=== PATIENT | male | born 1970 | race American Indian/Alaskan Native ===

== ENCOUNTER 2020-02-06 06:58 | Inpatient (IN) | payer OTHER ==
--- NOTE | 2020-02-06 07:07 | Emergency Department Report ---
ED Shortness of Breath HPI - General Stated Complaint: PRETTY Time Seen by Provider: 02/06/20 07:02 Source: patient Mode of arrival: Stretcher Limitations: No Limitations - History of Present Illness Initial Comments: Mr. Arellano is a 49-year-old male with history of ESRD on peritoneal dialysis, insulin-dependent diabetes who has sudden onset of shortness of breath 2-1/2 hours prior to arrival. He arrived via EMS. EMS detected 84% oxygenation on room air. 99% after nonrebreather. Blood glucose also 41. Denies fever. Denies cough. No travel. Known exposure to Kovic 19 infection. However he has not socially isolated. He has visited retail places such as grocery stores. 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 Normal fluid intake. He performs 4 exchanges for peritoneal dialysis. Stacker Dr. Merry Pfeiffer MD Complaint: shortness of breath -: Sudden, hour(s) (2.5) Severity: severe Consistency: constant Improves With: oxygen Worsens With: nothing Known History Of: diabetes, other (Chronic kidney disease) Associated Symptoms: denies other symptoms - Related Data Home Medications Medication Instructions Recorded Confirmed Last Taken Levemir VIAL 12 units SUB-Q BID 02/06/20 02/06/20 02/05/20 21:00 Losartan 100 mg PO DAILY 02/06/20 02/06/20 02/05/20 09:00 NIFEdipine [Nifedipine ER] 60 mg PO HS 02/06/20 02/06/20 02/05/20 21:00 NovoLOG 100 UNITS/ML VIAL 4 units SUB-Q TID 02/06/20 02/06/20 Unknown carvediloL [Coreg] 25 mg PO BID 02/06/20 02/06/20 02/05/20 21:00 cloNIDine 0.2 mg PO DAILY 02/06/20 02/06/20 02/05/20 09:00 Allergies Allergy/AdvReac Type Severity Reaction Status Date / Time No Known Allergies Allergy Unverified 02/06/20 07:32 ED Review of Systems ROS: Stated complaint: PRETTY Other details as noted in HPI Comment: All other systems reviewed and negative Constitutional: malaise Respiratory: shortness of breath Cardiovascular: denies: chest pain Gastrointestinal: denies: abdominal pain, nausea, vomiting Neurological: denies: headache ED Past Medical Hx - Past Medical History Previous Medical History?: Yes Hx Diabetes: Yes Hx Renal Disease: Yes - Medications Home Medications: Home Medications Medication Instructions Recorded Confirmed Last Taken Type Levemir VIAL 12 units SUB-Q BID 02/06/20 02/06/20 02/05/20 21:00 History Losartan 100 mg PO DAILY 02/06/20 02/06/20 02/05/20 09:00 History NIFEdipine [Nifedipine ER] 60 mg PO HS 02/06/20 02/06/20 02/05/20 21:00 History NovoLOG 100 UNITS/ML VIAL 4 units SUB-Q TID 02/06/20 02/06/20 Unknown History carvediloL [Coreg] 25 mg PO BID 02/06/20 02/06/20 02/05/20 21:00 History cloNIDine 0.2 mg PO DAILY 02/06/20 02/06/20 02/05/20 09:00 History ED Physical Exam - General General appearance: alert, in distress (Obvious work of breathing patient a ppears clammy) - Head Head exam: Present: atraumatic, normocephalic - Eye Eye exam: Present: normal appearance - ENT ENT exam: Present: normal orophraynx, mucous membranes moist - Neck Neck exam: Present: normal inspection, full ROM - Respiratory Respiratory exam: Present: respiratory distress, rales, rhonchi, accessory muscle use, decreased breath sounds, other (loud rales ronchi lower midback). Absent: wheezes - Cardiovascular Cardiovascular Exam: Present: regular rate, normal rhythm, normal heart sounds. Absent: systolic murmur, diastolic murmur, rubs, gallop - GI/Abdominal GI/Abdominal exam: Present: soft, normal bowel sounds, other (Left lower quadrant: Peritoneal dialysis catheter in place without redness or drainage). Absent: distended, tenderness, guarding, rebound - Rectal Rectal exam: Present: deferred - Extremities Exam Extremities exam: Present: normal inspection - Neurological Exam Neurological exam: Present: alert, oriented X3 - Psychiatric Psychiatric exam: Present: normal affect, normal mood - Skin Skin exam: Present: warm, dry, intact, normal color. Absent: rash ED Course Vital Signs 02/06/20 02/06/20 02/06/20 07:27 08:19 08:48 Pulse Rate 75 88 78 Respiratory 22 15 Rate Blood Pressure 189/102 189/102 Blood Pressure 184/99 [Right] O2 Sat by Pulse 92 92 Oximetry 02/06/20 02/06/20 08:49 09:21 Pulse Rate 78 78 Respiratory Rate Blood Pressure 189/102 203/120 Blood Pressure [Right] O2 Sat by Pulse Oximetry ED Medical Decision Making - Lab Data Result diagrams: 02/06/20 07:42 02/06/20 07:42 - Radiology Data Radiology results: report reviewed Chest radiograph reveal bilateral perihilar vascular prominence and parenchymal opacification likely representing interstitial edema - Medical Decision Making Mr. Arellano presents with acute respiratory failure hypoxia presumably due to pulmonary edema, volume overload in the setting of end-stage renal disease on peritoneal dialysis. Without fever cough I do not suspect infectious process however considering our current international pandemic of COVID 19 infection, I have submitted pain URI survey to the [facility]. Patient had been placed on respiratory and droplet precautions upon arrival. However after reviewing x-ray and clinical picture, patient presents without fever cough I feel his symptoms are due to volume overload pulmonary edema due to end-stage renal disease. Mr. Arellano does not make urine. Home medications include nifedipine carvedilol losartan clonidine I discussed case with inspector semiconductor wafer Dr. Caballero who will initiate continuous peritoneal dialysis. Will consider temporary hemodialysis if required. Admitted to the hospital service in fair condition. Critical Care Time: Yes Critical care time in (mins) excluding proc time.: 40 Critical care attestation.: If time is entered above; I have spent that time in minutes in the direct care of this critically ill patient, excluding procedure time. 40 minutes of critical care time excluding procedures were used in the care of the patient. I reviewed electronic record. I discussed treatment plan with the nursing team members at the bedside. I came immediately to the bedside. Patient required multiple interventions and reassessments. Patient required multiple consultations with specialists. ED Disposition Clinical Impression: Acute respiratory failure with hypoxia, Volume overload, Pulmonary edema Disposition: OP ADMIT IP TO THIS HOSP Is pt being admited?: Yes Does the pt Need Aspirin: No Condition: Fair
[2020-02-06] MEDS ORDERED: DEXTROSE 50% IN WATER (25GM) 50 ML SYRINGE IV ONE (07:08)
[2020-02-06] MEDS ORDERED: DEXTROSE 50% IN WATER (25GM) 50 ML VIAL IV ONE (07:33)
[2020-02-06] MEDS ORDERED: NITROGLYCERIN 2% OINT 1 GM TP ONE (07:58)
[2020-02-06] MEDS ORDERED: LOSARTAN 25 MG TAB PO ONE (07:58)
[2020-02-06] MEDS ORDERED: cloNIDine 0.2 MG TAB PO ONE (07:58)
[2020-02-06] MEDS ORDERED: FUROSEMIDE 100 MG/10 ML INJ IV ONE (08:01)
[2020-02-06 08:29] LABS: Basophils # (Auto) 0.1 K/mm3 (0.0-0.1); Basophils % (Auto) 1.6 % (0.0-1.8); Eosinophils # (Auto) 0.4 K/mm3 (0.0-0.4); Hematocrit 31.4 % (35.5-45.6); Lymphocytes # (Auto) 1.1 K/mm3 (1.2-5.4); Lymphocytes % (Auto) 18.3 % (13.4-35.0); Mean Corpuscular HGB Conc 32 % (32-34); Mean Corpuscular Volume 74 fl (84-94); Monocytes # (Auto) 0.3 K/mm3 (0.0-0.8); Monocytes % (Auto) 5.4 % (0.0-7.3); Platelet Count 366 K/mm3 (140-440); Red Blood Count 4.27 M/mm3 (3.65-5.03)
--- NOTE | 2020-02-06 08:31 | XRay Report ---
CHEST 1 VIEW 02/06/2020 7:22 AM INDICATION / CLINICAL INFORMATION: Dyspnea. COMPARISON: None available. FINDINGS: SUPPORT DEVICES: None. HEART / MEDIASTINUM: Mildly enlarged. LUNGS / PLEURA: There is bilateral perihilar vascular prominence and parenchymal opacification likely representing interstitial edema. No pneumothorax. ADDITIONAL FINDINGS: No significant additional findings. IMPRESSION: 1. Findings that may represent CHF, including mild cardiomegaly and bilateral perihilar vascular prom inence and parenchymal opacities. Signer Name: Jayy Devine MD Signed: 02/06/2020 8:26 AM Workstation Name: [id number]
[2020-02-06 08:40] LABS: Red Cell Distribution Width 21.3 % (13.2-15.2)
[2020-02-06 08:46] LABS: Albumin 3.5 g/dL (3.9-5)
[2020-02-06 08:58] LABS: Chol/HDL Ratio 4.02 %
[2020-02-06] MEDS ORDERED: DEXTROSE 50% IN WATER (25GM) 50 ML SYRINGE IV PRN (09:38)
[2020-02-06] MEDS ORDERED: ALBUTEROL 2.5 MG/3 ML NEBU IH PRN (09:39)
--- NOTE | 2020-02-06 09:44 | History and Physical Report ---
History of Present Illness Date of examination: 02/06/20 Date of admission: 02/06/2020 Chief complaint: Shortness of breath History of present illness: Patient is a 49-year-old male with past medical history of end-stage renal disease on peritoneal dialysis, diabetic mellitus insulin-dependent and hypertension who presented to the ED with complaints of shortness of breath which he states was sudden in onset. He did call EMS on arrival of EMS was noted to have an oxygen saturation of 84% on room air. It was also noted to have congestion bilateral. When oxygen was placed on him his oxygen improved to 99% on a nonrebreather and is now 97% on 2 L nasal cannula. He denies any nausea vomiting or diarrhea he denies any cold or cough. He reports that he does have seasonal allergies and is not unusual for him to get acutely short of breath like this. He denies any prior exposure to COVID 19 persons. He normally performs 4 exchanges for peritoneal dialysis. He reports that he also continues to work abnormalities. Has been associated with the ongoing viral infection. Past History Past Medical History: diabetes, ESRD, hypertension, hyperlipidemia Past Surgical History: Other (PD catheter) Social history: no significant social history, full code Family history: no significant family history Medications and Allergies Allergies Allergy/AdvReac Type Severity Reaction Status Date / Time No Known Allergies Allergy Unverified 02/06/20 07:32 Home Medications Medication Instructions Recorded Confirmed Last Taken Type Levemir VIAL 12 units SUB-Q BID 02/06/20 02/06/20 02/05/20 21:00 History Losartan 100 mg PO DAILY 02/06/20 02/06/20 02/05/20 09:00 History NIFEdipine [Nifedipine ER] 60 mg PO HS 02/06/20 02/06/20 02/05/20 21:00 History NovoLOG 100 UNITS/ML VIAL 4 units SUB-Q TID 02/06/20 02/06/20 Unknown History carvediloL [Coreg] 25 mg PO BID 02/06/20 02/06/20 02/05/20 21:00 History cloNIDine 0.2 mg PO DAILY 02/06/20 02/06/20 02/05/20 09:00 History Active Meds: Active Medications Albuterol (Proventil) 2.5 mg IH Q3HRT PRN PRN Reason: Shortness Of Breath Carvedilol (Coreg) 25 mg PO BID RAJ Dextrose (D50w (25gm) Syringe) 50 ml IV Q30MIN PRN; Protocol PRN Reason: Hypoglycemia Insulin Human Lispro (Humalog) 0 unit SUB-Q ACHS RAJ; Protocol Miscellaneous Medication (Clonidine) 0.2 mg PO DAILY RAJ Miscellaneous Medication (Levemir Vial) 12 units SUB-Q BID RAJ Miscellaneous Medication (Losartan) 100 mg PO DAILY RAJ Miscellaneous Medication (Novolog 100 Units/Ml Vial) 4 units SUB-Q TID RAJ Nifedipine (Procardia Xl) 60 mg PO HS RAJ Sodium Chloride (Sodium Chloride Flush Syringe 10 Ml) 10 ml IV BID RAJ Sodium Chloride (Sodium Chloride Flush Syringe 10 Ml) 10 ml IV PRN PRN PRN Reason: LINE FLUSH Review of Systems Constitutional: no weight loss, no weight gain, no fever, no chills, no sweats, no fatigue, no weakness, no malaise Cardiovascular: shortness of breath, dyspnea on exertion, no chest pain, no orthopnea, no palpitations, no rapid/irregular heart beat, no edema, no syncope, no lightheadedness, no paroxysmal nocturnal dyspnea, no claudication, no phlebitis, no high blood pressure Respiratory: shortness of breath, dyspnea on exertion, no cough, no cough with sputum, no excessive sputum Gastrointestinal: no abdominal pain, no nausea, no diarrhea, no change in bowel habits, no hematemesis Musculoskeletal: no neck pain, no arm numbness/tingling, no morning stiffness, no muscle weakness, no myalgias, no frequent falls, no fractures, no loss of height Integumentary: no rash, no redness, no jaundice, no darkening of skin, no depigmentation Neurological: no paralysis, no parathesias, no syncope, no confusion, no memory loss, no loss of vision Psychiatric: no change in sleep habits, no change in appetite, no anhedonia, no difficulties concentrating Exam - Physical Exam Narrative exam: VITAL SIGNS: Reviewed. GENERAL: The patient appears normally developed, otherwise with mild to moderate respiratory distress vital signs as documented. HEAD: No signs of head trauma. EYES: Pupils are equal. Extraocular motions intact. EARS: Hearing grossly intact. MOUTH: Oropharynx is normal. NECK: No adenopathy, no JVD. CHEST: Chest with crackles breath sounds bilaterally. No wheezes. CARDIAC: Regular rate and rhythm. S1 and S2, without murmurs, gallops, or rubs. VASCULAR: No Edema. Peripheral pulses normal and equal in all extremities. ABDOMEN: Soft, non tender and non distended. No rebound or guarding, and no masses palpated. Bowel Sounds normal. MUSCULOSKELETAL: Good range of motion of all major joints. Extremities without clubbing, cyanosis or edema. NEUROLOGIC EXAM: Alert and oriented x 3 No focal sensory or strength deficits. Speech normal. Follows commands. PSYCHIATRIC: Mood normal. SKIN: detial exam as documented in skin assessment - Constitutional Vitals: Temp Pulse Resp BP Pulse Ox 78 15 203/120 92 02/06/20 09:21 02/06/20 08:19 02/06/20 09:21 02/06/20 08:19 Results - Labs CBC & Chem 7: 02/06/20 07:42 02/06/20 07:42 Labs: Laboratory Last Values WBC 6.0 K/mm3 (4.5-11.0) 02/06/20 07:42 RBC 4.27 M/mm3 (3.65-5.03) 02/06/20 07:42 Hgb 10.0 gm/dl (11.8-15.2) L 02/06/20 07:42 Hct 31.4 % (35.5-45.6) L 02/06/20 07:42 MCV 74 fl (84-94) L 02/06/20 07:42 MCH 24 pg (28-32) L 02/06/20 07:42 MCHC 32 % (32-34) 02/06/20 07:42 RDW 21.3 % (13.2-15.2) H 02/06/20 07:42 Plt Count 366 K/mm3 (140-440) 02/06/20 07:42 Lymph % (Auto) 18.3 % (13.4-35.0) 02/06/20 07:42 [place] % (Auto) 5.4 % (0.0-7.3) 02/06/20 07:42 Eos % (Auto) 6.0 % (0.0-4.3) H 02/06/20 07:42 Baso % (Auto) 1.6 % (0.0-1.8) 02/06/20 07:42 Lymph # 1.1 K/mm3 (1.2-5.4) L 02/06/20 07:42 [place] # 0.3 K/mm3 (0.0-0.8) 02/06/20 07:42 Eos # 0.4 K/mm3 (0.0-0.4) 02/06/20 07:42 Baso # 0.1 K/mm3 (0.0-0.1) 02/06/20 07:42 Seg Neutrophils % 68.7 % (40.0-70.0) 02/06/20 07:42 Seg Neutrophils # 4.1 K/mm3 (1.8-7.7) 02/06/20 07:42 Sodium 135 mmol/L (137-145) L 02/06/20 07:42 Potassium 4.5 mmol/L (3.6-5.0) 02/06/20 07:42 Chloride 93.2 mmol/L (98-107) L 02/06/20 07:42 Carbon Dioxide 20 mmol/L (22-30) L 02/06/20 07:42 Anion Gap 26 mmol/L 02/06/20 07:42 BUN 92 mg/dL (9-20) H 02/06/20 07:42 Creatinine 19.3 mg/dL (0.8-1.5) H 02/06/20 07:42 Estimated GFR 3 ml/min 02/06/20 07:42 BUN/Creatinine Ratio 5 % 02/06/20 07:42 Glucose 101 mg/dL (75-100) H 02/06/20 07:42 POC Glucose 40 (70-105) L 02/06/20 07:26 Calcium 8.0 mg/dL (8.4-10.2) L 02/06/20 07:42 Total Bilirubin 0.40 mg/dL (0.1-1.2) 02/06/20 07:42 AST 26 units/L (5-40) 02/06/20 07:42 ALT 17 units/L (7-56) 02/06/20 07:42 Alkaline Phosphatase 80 units/L (35-129) 02/06/20 07:42 Troponin T 0.219 ng/mL (0.00-0.029) H* 02/06/20 07:42 Total Protein 6.8 g/dL (6.3-8.2) 02/06/20 07:42 Albumin 3.5 g/dL (3.9-5) L 02/06/20 07:42 Albumin/Globulin Ratio 1.1 % 02/06/20 07:42 Triglycerides 162 mg/dL (2-149) H 02/06/20 07:42 Cholesterol 153 mg/dL (50-199) 02/06/20 07:42 LDL Cholesterol Direct 91 mg/dL (50-130) 02/06/20 07:42 HDL Cholesterol 38 mg/dL (40-59) L 02/06/20 07:42 Cholesterol/HDL Ratio 4.02 % 02/06/20 07:42 Microbiology: Microbiology 02/06/20 Unknown Peripheral/Venous Blood Culture - Preliminary Culture in Progress 02/06/20 Unknown Peripheral/Venous Blood Culture - Preliminary Culture in Progress - Imaging and Cardiology Chest x-ray: image reviewed (Bilateral pulmonary edema) Assessment and Plan Assessment and plan: Patient is a 49-year-old male with past medical history of end-stage renal disease on peritoneal dialysis, diabetic mellitus insulin-dependent and hypertension who presented to the ED with complaints of shortness of breath which he states was sudden in onset. He did call EMS on arrival of EMS was noted to have an oxygen saturation of 84% on room air. It was also noted to have congestion bilateral. When oxygen was placed on him his oxygen improved to 99% on a nonrebreather and is now 97% on 2 L nasal cannula. He denies any n ausea vomiting or diarrhea he denies any cold or cough. He reports that he does have seasonal allergies and is not unusual for him to get acutely short of breath like this. He denies any prior exposure to COVID 19 persons. He normally performs 4 exchanges for peritoneal dialysis. He reports that he also continues to work abnormalities. Has been associated with the ongoing viral infection. * Patient will be admitted to telemetry unit. Following discussion with NOREEN lee and sudden onset of patient's condition while I think is less likely that the patient is currently 19+ nevertheless with the ongoing clinical condition and the environment will go ahead with work-up that has been initiated in the ED. * We will also start patient on Claritin considering seasonal allergies. * Per ED physician nephrology is going to do continuous PD diuresis and will reevaluate the patient including chest x-ray in a.m. * We will add the additional COVID 19 work-up. * Plan has been discussed with the patient in detail DVT and GI prophylaxis will also be included. Acute on chronic respiratory failure with hypoxia End-stage renal disease on hemodialysis Volume overload Seasonal allergies Presumed COVID 19 rule out Diabetes mellitus Hypertension Type II ID Advance Directives: Yes Plan of care discussed with patient/family: Yes
[2020-02-06] MEDS ORDERED: LEVEMIR 12 UNIT SUB-Q SCH (10:00)
[2020-02-06] MEDS ORDERED: LOSARTAN 50 MG TAB PO SCH (10:00)
[2020-02-06] MEDS ORDERED: cloNIDine 0.2 MG TAB ONE (11:51)
[2020-02-06] MEDS ORDERED: LOSARTAN 50 MG TAB ONE (11:56)
[2020-02-06] MEDS ORDERED: carvediloL 25 MG TAB ONE (11:57)
[2020-02-06] MEDS: cloNIDine 0.2 MG TAB PO SCH (12:00)
[2020-02-06] MEDS: carvediloL 25 MG TAB PO SCH ×2 (12:00→21:54)
[2020-02-06] MEDS ORDERED: NOVOLOG SUB-Q SCH (14:00)
--- NOTE | 2020-02-06 15:04 | Consultation ---
History of Present Illness - Reason for Consult Consult date: 02/06/20 end stage renal disease Requesting physician: RADHA LIM - History of Present Illness This is a 49 yo M with past medical history of Hypertension, Type 2 DM, ESRD on PD for > 4 years, who is BIBEMS to the [facility] with complaints of acute onset of shortness of breath, dyspnea on exertion. EMS detected 84% oxygenation on room air. 99% after nonrebreather. In ER patient was found to have elevated BP > 200/100s, CXR showed evidence of pulmonary edema, renal consult is requested for management of ESRD/PD Pt also c/o some productive cough however denies fever, chills, Denies recent travel or exposure to COVID19 patients. However he has not socially isolated, has visited retail places such as grocery stores. 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 pt's primary electricity trading analyst is Dr. Merry Pfeiffer in [facility], called pt's PD nurse who states that pt is high transporter, he performs CAPD at home using 4 exchanges for peritoneal dialysis daily with overnight dwell. Past History Past Medical History: diabetes, ESRD, hypertension Past Surgical History: Other (PD cath placement ) Social history: denies: smoking, alcohol abuse, prescription drug abuse, IV drug use Family history: hypertension Medications and Allergies Allergies Allergy/AdvReac Type Severity Reaction Status Date / Time No Known Allergies Allergy Unverified 02/06/20 07:32 Home Medications Medication Instructions Recorded Confirmed Last Taken Type Levemir VIAL 12 units SUB-Q BID 02/06/20 02/06/20 02/05/20 21:00 History Losartan 100 mg PO DAILY 02/06/20 02/06/20 02/05/20 09:00 History NIFEdipine [Nifedipine ER] 60 mg PO HS 02/06/20 02/06/20 02/05/20 21:00 History NovoLOG 100 UNITS/ML VIAL 4 units SUB-Q TID 02/06/20 02/06/20 Unknown History carvediloL [Coreg] 25 mg PO BID 02/06/20 02/06/20 02/05/20 21:00 History cloNIDine 0.2 mg PO DAILY 02/06/20 02/06/20 02/05/20 09:00 History Active Meds: Active Medications Albuterol (Proventil) 2.5 mg IH Q3HRT PRN PRN Reason: Shortness Of Breath Carvedilol (Coreg) 25 mg PO BID [facility] Last Admin: 02/06/20 12:00 Dose: 25 mg Documented by: Clonidine HCl (Catapres) 0.2 mg PO DAILY [facility] Last Admin: 02/06/20 12:00 Dose: 0.2 mg Documented by: Dextrose (D50w (25gm) Syringe) 50 ml IV Q30MIN PRN; Protocol PRN Reason: Hypoglycemia Insulin Glargine (Lantus) 12 units SUB-Q BIDDIAB RAJ Insulin Human Lispro (Humalog) 0 unit SUB-Q ACHS [facility]; Protocol Insulin Human Lispro (Humalog) 4 unit SUB-Q TIDDIAB RAJ Losartan Potassium (Cozaar) 100 mg PO DAILY [facility] Last Admin: 02/06/20 12:00 Dose: 100 mg Documented by: Nifedipine (Procardia Xl) 60 mg PO HS RAJ Peritoneal Dialysis Solution (Dianeal Low Calcium W/4.25% Dextrose) 2,000 ml IP Q4HR RAJ Sodium Chloride (Sodium Chloride Flush Syringe 10 Ml) 10 ml IV BID [facility] Sodium Chloride (Sodium Chloride Flush Syringe 10 Ml) 10 ml IV PRN PRN PRN Reason: LINE FLUSH Review of Systems All systems: negative Constitutional: weakness Cardiovascular: shortness of breath, dyspnea on exertion Exam - Vital Signs Vital signs: Vital Signs Pulse Resp BP Pulse Ox 75 22 184/99 92 02/06/20 07:27 02/06/20 07:27 02/06/20 07:27 02/06/20 07:27 - General Appearance General appearance: well-developed, well-nourished, appears stated age EENT: ATNC, PERRL, mucous membranes moist Neck: Present: neck supple Respiratory: Decreased Breath Sounds Heart: regular, S1S2 Gastrointestinal: Present: normoactive bowel sounds Integumentary: no rash, other (no pitting edema ) Neurologic: no focal deficit, alert and oriented x3, strength 5/5, CN 3-12 intact Psychiatric: mood/affect appropriate, cooperative Results - Lab Results 02/06/20 07:42 02/06/20 07:42 Most recent lab results Calcium 8.0 mg/dL (8.4-10.2) L 02/06/20 07:42 Assessment and Plan - Patient Problems (1) End stage renal disease Current Visit: Yes Status: Acute Plan to address problem: increased PD cycles to 6, dwell volume 2L, using 4.25% dineal for improved volume/BP control. if no significant response seen with PD, will consider temporary HD. (2) Type 2 diabetes mellitus with diabetic chronic kidney disease Current Visit: Yes Status: Acute Plan to address problem: DM management as per primary attending (3) Hypertensive chronic kidney disease with stage 5 chronic kidney disease or end stage renal disease Current Visit: Yes Status: Acute Plan to address problem: cont pt's home BP regimen, further volume control with increased PD cycles and 4.25% dineal solution (4) Acute respiratory failure with hypoxia Current Visit: Yes Status: Acute Plan to address problem: respiratory status improved somewhat with lasix 100mg IV x 1 dose, currently on 2L NC, (5) Anemia in chronic illness Current Visit: Yes Status: Acute Plan to address problem: Hb at target currently, no further LEONA required at present (6) Pulmonary edema Current Visit: Yes Status: Acute Plan to address problem: s/p IV lasix 100mg, cont UF with adjusted PD regimen as above
--- NOTE | 2020-02-06 15:48 | Consultation ---
History of Present Illness Consult date: 02/06/20 History of present illness: The patient is a 49-year-old man with end-stage renal disease on hemodialysis and chronic hypertension. He is admitted to the hospital with complaints of sudden onset shortness of breath, presented with marked hypoxemia, chest x-ray is abnormal with bilateral hazy infiltrates restricted to both lower lobes. Cardiology consultation is requested for the finding of mild increase in troponin level of 0.21. The patient has no prior cardiac history, had no chest pain, no palpitations and no lower extremity edema. Work-up so far includes a 12-lead EKG that was normal sinus rhythm, normal ECG. The chest x-ray as described above by my reading is atypical for cardiogenic pulmonary edema, consider atypical pneumonitis. Patient is currently under further evaluation for COVID-19. Past History Past Medical History: diabetes, ESRD, hypertension Past Surgical History: Other (PD cath placement ) Social history: denies: smoking, alcohol abuse, prescription drug abuse, IV drug use Family history: hypertension Medications and Allergies Allergies Allergy/AdvReac Type Severity Reaction Status Date / Time No Known Allergies Allergy Unverified 02/06/20 07:32 Home Medications Medication Instructions Recorded Confirmed Last Taken Type Levemir VIAL 12 units SUB-Q BID 02/06/20 02/06/20 02/05/20 21:00 History Losartan 100 mg PO DAILY 02/06/20 02/06/20 02/05/20 09:00 History NIFEdipine [Nifedipine ER] 60 mg PO HS 02/06/20 02/06/20 02/05/20 21:00 History NovoLOG 100 UNITS/ML VIAL 4 units SUB-Q TID 02/06/20 02/06/20 Unknown History carvediloL [Coreg] 25 mg PO BID 02/06/20 02/06/20 02/05/20 21:00 History cloNIDine 0.2 mg PO DAILY 02/06/20 02/06/20 02/05/20 09:00 History Active Meds: Active Medications Albuterol (Proventil) 2.5 mg IH Q3HRT PRN PRN Reason: Shortness Of Breath Carvedilol (Coreg) 25 mg PO BID [facility] Last Admin: 02/06/20 12:00 Dose: 25 mg Documented by: Clonidine HCl (Catapres) 0.2 mg PO DAILY [facility] Last Admin: 02/06/20 12:00 Dose: 0.2 mg Documented by: Dextrose (D50w (25gm) Syringe) 50 ml IV Q30MIN PRN; Protocol PRN Reason: Hypoglycemia Insulin Glargine (Lantus) 12 units SUB-Q BIDDIAB RAJ Insulin Human Lispro (Humalog) 0 unit SUB-Q ACHS RAJ; Protocol Insulin Human Lispro (Humalog) 4 unit SUB-Q TIDDIAB RAJ Losartan Potassium (Cozaar) 100 mg PO DAILY RAJ Last Admin: 02/06/20 12:00 Dose: 100 mg Documented by: Nifedipine (Procardia Xl) 60 mg PO HS RAJ Peritoneal Dialysis Solution (Dianeal Low Calcium W/4.25% Dextrose) 2,000 ml IP Q4HR RAJ Sodium Chloride (Sodium Chloride Flush Syringe 10 Ml) 10 ml IV BID RAJ Sodium Chloride (Sodium Chloride Flush Syringe 10 Ml) 10 ml IV PRN PRN PRN Reason: LINE FLUSH Review of Systems Cardiovascular: shortness of breath, no chest pain, no orthopnea, no palpitations, no rapid/irregular heart beat, no edema, no syncope, no lightheadedness Physical Examination Vital Signs Pulse Resp BP Pulse Ox 75 22 184/99 92 02/06/20 07:27 02/06/20 07:27 02/06/20 07:27 02/06/20 07:27 Other: Physical examination is deferred due to suspected COVID-19 infection. Results 02/06/20 07:42 02/06/20 07:42 Cardiac Enzymes 02/06/20 Range/Units 07:42 AST 26 (5-40) units/L Lipids 02/06/20 Range/Units 07:42 Triglycerides 162 H (2-149) mg/dL Cholesterol 153 (50-199) mg/dL HDL Cholesterol 38 L (40-59) mg/dL Cholesterol/HDL Ratio 4.02 % CBC 02/06/20 Range/Units 07:42 WBC 6.0 (4.5-11.0) K/mm3 RBC 4.27 (3.65-5.03) M/mm3 Hgb 10.0 L (11.8-15.2) gm/dl Hct 31.4 L (35.5-45.6) % Plt Count 366 (140-440) K/mm3 Lymph # 1.1 L (1.2-5.4) K/mm3 Faulk # 0.3 (0.0-0.8) K/mm3 Eos # 0.4 (0.0-0.4) K/mm3 Baso # 0.1 (0.0-0.1) K/mm3 Comprehensive Metabolic Panel 02/06/20 Range/Units 07:42 Sodium 135 L (137-145) mmol/L Potassium 4.5 (3.6-5.0) mmol/L Chloride 93.2 L (98-107) mmol/L Carbon Dioxide 20 L (22-30) mmol/L BUN 92 H (9-20) mg/dL Creatinine 19.3 H (0.8-1.5) mg/dL Glucose 101 H (75-100) mg/dL Calcium 8.0 L (8.4-10.2) mg/dL AST 26 (5-40) units/L ALT 17 (7-56) units/L Alkaline Phosphatase 80 (35-129) units/L Total Protein 6.8 (6.3-8.2) g/dL Albumin 3.5 L (3.9-5) g/dL EKG interpretations - Telemetry EKG Rhythm: Sinus Rhythm Assessment and Plan - Patient Problems (1) Acute respiratory failure with hypoxia Current Visit: Yes Status: Acute Plan to address problem: The patient's ECG by my reading is atypical for cardiogenic pulmonary edema. He has bilateral interstitial hazy infiltrates restricted to both lower lobes. Recommend further consideration for atypical pneumonia. Ultimately we will consider echocardiogram for left ventricular function assess ment, this will be done after he has undergone full evaluation for COVID-19 infection. (2) Uncontrolled hypertension Current Visit: Yes Status: Acute Plan to address problem: Patient's blood pressure is severely uncontrolled, currently 180s systolic despite current medical therapy. We will switch losartan to valsartan, and add Cardura. Continue Procardia XL.
[2020-02-06] MEDS: INSULIN LISPRO 100 UNIT/ML SUB-Q SCH ×5 (17:34→23:01)
[2020-02-06] MEDS: [UNRECOGNIZED DRUG - OTHER] IP SCH ×3 (17:34→21:53)
[2020-02-06] MEDS: NIFEdipine XL 90 MG TAB PO SCH (18:28)
[2020-02-06] MEDS: INSULIN GLARGINE 100 UNITS/ML SUB-Q SCH (18:28)
[2020-02-06] MEDS: DOXAZOSIN 1 MG TAB PO SCH ×2 (18:58→23:00)
[2020-02-06 21:54] LABS: C-Reactive Protein 0.3 mg/dL (0.00-1.30)
[2020-02-06] MEDS: VALSARTAN 160MG TAB PO SCH (21:54)
[2020-02-06] MEDS ORDERED: NIFEdipine XL 60 MG TAB PO SCH (22:00)
[2020-02-07] MEDS: [UNRECOGNIZED DRUG - OTHER] IP SCH ×4 (01:53→15:45)
[2020-02-07] MEDS: DOXAZOSIN 1 MG TAB PO SCH ×2 (03:13→09:38)
[2020-02-07] MEDS ORDERED: INSULIN REGULAR, HUMAN 100 UNITS/1 ML SUB-Q ONE (08:36)
[2020-02-07] MEDS: INSULIN LISPRO 100 UNIT/ML SUB-Q SCH ×4 (08:37→13:25)
[2020-02-07] MEDS: INSULIN GLARGINE 100 UNITS/ML SUB-Q SCH (08:41)
[2020-02-07] MEDS: cloNIDine 0.2 MG TAB PO SCH (09:37)
[2020-02-07] MEDS: carvediloL 25 MG TAB PO SCH (09:38)
[2020-02-07] MEDS: VALSARTAN 160MG TAB PO SCH (09:38)
[2020-02-07] MEDS: NIFEdipine XL 90 MG TAB PO SCH (09:39)
[2020-02-07] MEDS ORDERED: INSULIN GLARGINE 100 UNITS/ML SUB-Q SCH (10:00)
[2020-02-07 10:17] LABS: Calcium 7.9 mg/dL (8.4-10.2)
--- NOTE | 2020-02-07 13:21 | Discharge Summary ---
Providers - Providers Date of Admission: 02/06/20 09:35 Attending physician: ARON SHEPHERD MD 02/06/20 09:26 Consult to Physician [CONS] Stat Comment: Consulting Provider: DONG DIXON Physician Instructions: Reason For Exam: pulmonary edema hypoxia 02/06/20 09:39 Consult to Dietitian/Nutrition [CONS] Routine Physician Instructions: Reason For Exam: Reason for Consult: Malnutrition 02/06/20 09:43 Consult to Physician [CONS] Routine Comment: Consulting Provider: ANDERSON MENDIOLA Physician Instructions: Reason For Exam: Positive Troponin, Likely type 2 IN Primary care physician: [employer] Hospitalization Reason for admission: Acute respiratory failure Condition: Stable Hospital course: Patient is a 49-year-old male with past medical history of end-stage renal disease on peritoneal dialysis, diabetic mellitus insulin-dependent and hypertension who presented to the ED with complaints of shortness of breath wh ich he states was sudden in onset. He did call EMS on arrival of EMS was noted to have an oxygen saturation of 84% on room air. It was also noted to have congestion bilateral. When oxygen was placed on him his oxygen improved to 99% on a nonrebreather and is now 97% on 2 L nasal cannula. He denies any nausea vomiting or diarrhea he denies any cold or cough. He reports that he does have seasonal allergies and is not unusual for him to get acutely short of breath like this. He denies any prior exposure to COVID 19 persons. He normally performs 4 exchanges for peritoneal dialysis. He reports that he also continues to work abnormalities. Has been associated with the ongoing viral infection. On admission patient was treated as noted below. Today reevaluation following peritoneal dialysis Clinically improved ambulating with saturation of 95% on room air. Extensive discussion about COVID 19 testing and precautions to be taken on discharge. Patient verbalized understanding * Patient will be admitted to telemetry unit. Following discussion with ER physician and sudden onset of patient's condition while I think is less likely that the patient is currently have COVID19+ nevertheless with the ongoing clinical condition and the environment will go ahead with work-up that has been initiated in the ED. * We will also start patient on Claritin considering seasonal allergies. * Per ED physician nephrology is going to do continuous PD diuresis and will reevaluate the patient including chest x-ray in a.m. * We will add the additional COVID 19 work-up. Acute on chronic respiratory failure with hypoxia End-stage renal disease on hemodialysis Volume overload Seasonal allergies Presumed COVID 19 rule out Diabetes mellitus Hypertension Type II IN g Disposition: DC-01 TO HOME OR SELFCARE Time spent for discharge: 35 mins Core Measure Documentation - Palliative Care Palliative Care/ Comfort Measures: Not Applicable - Core Measures Any of the following diagnoses?: none Exam - Physical Exam Narrative exam: VITAL SIGNS: Reviewed. GENERAL: The patient appears normally developed, otherwise with mild to moderate respiratory distress vital signs as documented. HEAD: No signs of head trauma. EYES: Pupils are equal. Extraocular motions intact. EARS: Hearing grossly intact. MOUTH: Oropharynx is normal. NECK: No adenopathy, no JVD. CHEST: Chest with diminshed breath sounds bilaterally. No wheezes. CARDIAC: Regular rate and rhythm. S1 and S2, without murmurs, gallops, or rubs. VASCULAR: No Edema. Peripheral pulses normal and equal in all extremities. ABDOMEN: Soft, non tender and non distended. No rebound or guarding, and no masses palpated. Bowel Sounds normal. MUSCULOSKELETAL: Good range of motion of all major joints. Extremities without clubbing, cyanosis or edema. NEUROLOGIC EXAM: Alert and oriented x 3 No focal sensory or strength deficits. Speech normal. Follows commands. PSYCHIATRIC: Mood normal. SKIN: detail exam as documented in skin assessment - Constitutional Vitals: Temp Pulse Resp BP Pulse Ox 98.1 F 86 19 141/84 99 02/07/20 11:54 02/07/20 11:54 02/07/20 11:54 02/07/20 11:54 02/07/20 11:54 Plan Activity: advance as tolerated, fall precautions Diet: low fat, renal Special Instructions: record daily weights, record daily BP diary Additional Instructions: Must self quaratine at home unless the test result for Covid 19 (Coronavirus) comes back negative then you can stop the self quaratine. If you must leave home, you are required to wear a Mask at all times. When at home to prevent Infecting family members you must wear a MASK Follow up with: PRIMARY CARE, [Primary Care Provider] - 7 Days (Also follow with your Acquisition Editor in 7-14 days. Continue PD AT HOME)
--- NOTE | 2020-02-07 15:31 | Progress Note ---
Assessment and Plan - Patient Problems (1) End stage renal disease Current Visit: Yes Status: Acute Plan to address problem: increased PD cycles to 6, dwell volume 2L, using 4.25% dineal for improved volume/BP control. 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 (2) Type 2 diabetes mellitus with diabetic chronic kidney disease Current Visit: Yes Status: Acute Plan to address problem: DM management as per primary attending (3) Hypertensive chronic kidney disease with stage 5 chronic kidney disease or end stage renal disease Current Visit: Yes Status: Acute Plan to address problem: cont pt's home BP regimen, further volume control with increased PD cycles and 4.25% dineal solution (4) Acute respiratory failure with hypoxia Current Visit: Yes Status: Acute Plan to address problem: respiratory status improved somewhat with lasix 100mg IV x 1 dose, currently on 2L NC, (5) Anemia in chronic illness Current Visit: Yes Status: Acute Plan to address problem: Hb at target currently, no further LEONA required at present (6) Pulmonary edema Current Visit: Yes Status: Acute Plan to address problem: improved s/p IV lasix 100mg and adjusted PD regimen as above Subjective Date of service: 02/07/20 Principal diagnosis: ESRD Interval history: Pt awake, alert, reports improved breathing on intensive PD regimen. denies SOB, CP, palpitations, fever, chills, n/d/v Objective - Vital Signs Vital signs: Vital Signs - 12hr 02/07/20 02/07/20 02/07/20 05:14 09:43 11:54 Temperature 99.0 F 98.1 F Pulse Rate 92 H 86 Respiratory 20 19 Rate Blood Pressure 134/77 145/80 141/84 O2 Sat by Pulse 92 99 Oximetry - General Appearance General appearance: well-developed, well-nourished, appears stated age EENT: ATNC, PERRL, mucous membranes moist Neck: no JVD Respiratory: Present: Clear to Ascultation Cardiology: regular, S1S2 Gastrointestinal: normoactive bowel sounds Integumentary: no rash, other (no edema ) Neurologic: no focal deficit, alert and oriented x3, strength 5/5, CN 3-12 intact Psychiatric: mood/affect appropriate, cooperative - Lab 02/06/20 07:42 02/07/20 09:03 Most recent lab results Calcium 7.9 mg/dL (8.4-10.2) L 02/07/20 09:03 Medications & Allergies - Medications Allergies/Adverse Reactions: Allergies No Known Allergies Allergy (Unverified 02/06/20 07:32) Home Medications: Home Medications Medication Instructions Recorded Confirmed Last Taken Type Abacavir [Ziagen TAB] 600 mg PO DAILY 02/06/20 02/07/20 Unknown History Atazanavir [Reyataz] 300 mg PO QHS 02/06/20 02/06/20 Unknown History Dolutegravir [Tivicay] 50 mg PO QHS 02/06/20 02/06/20 Unknown History Levemir VIAL 12 units SUB-Q BID 02/06/20 02/06/20 02/05/20 21:00 History Losartan 100 mg PO DAILY 02/06/20 02/06/20 02/05/20 09:00 History NIFEdipine [Nifedipine ER] 60 mg PO HS 02/06/20 02/06/20 02/05/20 21:00 History NovoLOG 100 UNITS/ML VIAL 4 units SUB-Q TID 02/06/20 02/06/20 Unknown History Ritonavir 100 mg PO QHS 02/06/20 02/06/20 Unknown History carvediloL [Coreg] 25 mg PO BID 02/06/20 02/06/20 02/05/20 21:00 History cloNIDine 0.2 mg PO DAILY 02/06/20 02/06/20 02/05/20 09:00 History Active Medications: Generic Name Dose Route Start Last Admin Trade Name Freq PRN Reason Stop Dose Admin Abacavir Sulfate 600 mg 02/07/20 22:00 Ziagen PO QHS RAJ Albuterol 2.5 mg 02/06/20 09:39 Proventil IH Q3HRT PRN Shortness Of Breath Atazanavir 300 mg 02/07/20 22:00 Reyataz PO QHS RAJ Carvedilol 25 mg 02/06/20 10:00 02/07/20 09:38 Coreg PO 25 mg BID RAJ Administration Clonidine HCl 0.2 mg 02/06/20 10:00 02/07/20 09:37 Catapres PO 0.2 mg DAILY RAJ Administration Dextrose 50 ml 02/06/20 09:38 D50w (25gm) Syringe IV Q30MIN PRN Hypoglycemia Protocol Doxazosin Mesylate 2 mg 02/06/20 16:00 02/07/20 09:38 Cardura PO 2 mg BID RAJ Administration Insulin Glargine 15 units 02/07/20 10:00 02/07/20 09:39 Lantus SUB-Q Not Given BIDDIAB RAJ Insulin Human Lispro 0 unit 02/06/20 11:30 02/07/20 13:25 Humalog SUB-Q Not Given ACHS RAJ Protocol Insulin Human Lispro 4 unit 02/06/20 12:00 02/07/20 13:25 Humalog SUB-Q Not Given TIDDIAB RAJ Nifedipine 90 mg 02/06/20 17:00 02/07/20 09:39 Procardia Xl PO 90 mg QDAY RAJ Administration Peritoneal Dialysis Solution 2,000 ml 02/06/20 10:00 02/07/20 10:30 Dianeal Low Calcium W/4.25% Dextrose IP 2,000 ml Q4HR RAJ Administration Ritonavir 100 mg 02/07/20 22:00 Ritonavir PO QHS RAJ Sodium Chloride 10 ml 02/06/20 10:00 02/07/20 09:39 Sodium Chloride Flush Syringe 10 Ml IV 10 ml BID RAJ Administration Sodium Chloride 10 ml 02/06/20 09:39 Sodium Chloride Flush Syringe 10 Ml IV PRN PRN LINE FLUSH Valsartan 160 mg 02/06/20 22:00 02/07/20 09:38 Diovan PO 160 mg BID RAJ Administration
[2020-02-07 16:15] VITALS: BP 141/78
[2020-02-07] MEDS ORDERED: ABACAVIR 300 MG TAB PO SCH (22:00)
[2020-02-07] MEDS ORDERED: RITONAVIR 100 MG PO SCH (22:00)
[2020-02-07] MEDS ORDERED: DOLUTEGRAVIR 50 MG TAB PO SCH (22:00)
[2020-02-07] MEDS ORDERED: ATAZANAVIR 150 MG CAP PO SCH (22:00)
[2020-02-07] MEDS ORDERED: RITONAVIR 100 MG TAB PO SCH (22:00)
== END 2020-02-07 17:30 | disposition home or self-care (01) | DRG 189 ==
LOC: ED 06:58 → 4A 09:35 → 3A 17:34
PROVIDERS: ADMIT Internal Medicine; ATTEND Internal Medicine
DX: J96.21 Acute and chronic respiratory failure with hypoxia (principal); N18.6 End stage renal disease; I21.A1 Myocardial infarction type 2; J81.1 Chronic pulmonary edema; E87.70 Fluid overload, unspecified; E11.22 Type 2 diabetes mellitus with diabetic chronic kidney disease; I12.9 Hypertensive chronic kidney disease with stage 1 through stage 4 chronic kidney disease, or unspecified chronic kidney disease; D63.8 Anemia in other chronic diseases classified elsewhere; Z79.899 Other long term (current) drug therapy; Z99.2 Dependence on renal dialysis; Z79.51 Long term (current) use of inhaled steroids
CPT/HCPCS: 36415; 71045; 80048; 80053; 80061; 82728; 82962; 83615; 83880; 84145; 84484; 85025; 85379; 86140; 87040; 87400; 93005; 93010; G0378; 87502; J1815; J1940